=== PATIENT | male | born 1930 | race Caucasian/White ===

== ENCOUNTER 2016-08-28 09:47 | Emergency (ER) | payer MEDICARE, OTHER ==
[~2016-08-28] VITALS: Ht 160 cm; Wt 66.0 kg
[~2016-08-28 09:47] MED LIST: AMLO5TAB4 PO; ASPI81TA3 PO; ATOR20TA38 PO; FEBU40TA PO; FERR-55 PO; FINA5TAB4 PO; GABA300C16 PO; PANT40TA3 PO; PARI1CAP2 PO; VALS1TAB74 PO
[2016-08-28 09:50] VITALS: Ht 160 cm; Wt 66.0 kg
--- NOTE | 2016-08-28 11:18 | ERD ---
ER Documentation Chief Complaint Date/Time DATE: 08/28/16 TIME: 11:16 Chief Complaint BILATERAL LEG PAIN X 2 DAYS HPI 86 y/o male presents to ED for bilateral leg swelling without pain for 2 days. Stated that there was no swelling today. Reports that he has been walking a lot and exercising frequently. Has an appointment with his primary care physician , Sunday. Denies headache, loss of consciousness, dizziness, blurry vision, changes in vision, photophobia, facial pain, ear pain, throat pain, difficulty swallowing, neck pain, shoulder pain, chest pain, cough, hemoptysis, abdominal pain, back pain, loss of appetite, nausea, vomiting, hematochezia, diarrhea, constipation, urinary symptoms, bladder and bowel incontinences, extremity weakness, extremity tenderness, numbness or tingling sensation, difficulty walking, recent travel, recent exposure to illness, recent antibiotic use in the last 3 months, fever, chills. Allergy: NKA PMH: High cholesterol, cardiac, hypertension, neuropathy, gastritis. Medications: Gabapentin, atorvastatin, amlodipine/Norvasc, valsartan, Protonix, finasteride Surgery: Pacemaker placement Family history: Denies Primary Social History: Denies Denies smoking, use of alcohol, use of illegal drugs. ROS All systems reviewed and are negative except as per history of present illness. Medications Home Meds Active Scripts Aspirin (Aspirin) 81 Mg Chew, 81 MG PO DAILY, #30 Prov:MICHELLE WISE MD 05/07/14 Reported Medications Atorvastatin Calcium* (Atorvastatin Calcium*) 20 Mg Tablet, 20 MG PO QHS, #30 TAB 05/30/16 Febuxostat* (Uloric*) 40 Mg Tablet, 40 MG PO DAILY, TAB 05/30/16 Amlodipine Besylate* (Norvasc*) 5 Mg Tablet, 5 MG PO DAILY, TAB 10/08/15 Gabapentin* (Gabapentin*) 300 Mg Capsule, 300 MG PO QPM, #60 CAP 10/08/15 Valsartan-Hydrochlorothiazide (Valsartan-HCTZ) 80-12.5 Mg Tablet, 1 TAB PO DAILY , TAB 10/08/15 Ferrous Sulfate* (Ferrous Sulfate*) 325 Mg Tablet, 325 MG PO DAILY, TAB 03/07/15 Paricalcitol* (Paricalcitol*) 1 Mcg Capsule, 1 MCG PO DAILY, CAP 05/04/14 Pantoprazole* (Protonix*) 40 Mg Tablet.dr, 40 MG PO DAILY, TAB 05/04/14 Finasteride* (Finasteride*) 5 Mg Tablet, 5 MG PO DAILY 08/07/11 Allergies Allergies: Coded Allergies: No Known Allergies (Verified Allergy, Mild, 03/28/16) PMhx/Soc History of Surgery: No Anesthesia Reaction: No Hx Neurological Disorder: No Hx Respiratory Disorders: No Hx Cardiac Disorders: Yes (PACEMAKER) Hx Psychiatric Problems: No Hx Miscellaneous Medical Probl: No Hx Alcohol Use: No Hx Substance Use: No Hx Tobacco Use: No Physical Exam Vitals Vital Signs Date Time Temp Pulse Resp B/P Pulse Ox O2 Delivery O2 Flow Rate FiO2 08/28/16 09:50 98.1 81 18 160/84 98 Physical Exam CONSTITUTIONAL: Well-appearing; well-nourished; in no apparent distress. HEAD: Normocephalic; atraumatic. EYES: Conjunctiva clear, sclera non-icteric, EOM intact. PERRL Ears: Hearing intact. EACs clear, TMs non-bulging, non-inflamed, translucent & mobile, ossicles normal appearance, No obstructions, no erythema, no discharges Nose: No obstructions. No polyps. No external lesions. Mucosa non-inflamed. No external lesions, septum and turbinates normal. No rhinorrhea. No discharges. Frontal sinus is non-tender to palpation. Maxillary sinus is non-tender to palpation. MOUTH: Moist mucous membranes, no lesion, no obstructions, no vesicles, no thrush, patent airway Throat: Uvula in midline. Right tonsil is +1 with no erythema, no exudate. Left tonsil is +1 with no erythema, no exudate. Tolerating secretions well. Good gag reflex. Patent airway. Neck: Supple, without lesions, bruits, or adenopathy. No mass. Thyroid non- enlarged and non-tender to palpation. CHEST: Symmetrical chest. Respirations even and not labored. No retractions noted. CARDIOVASCULAR: Normal S1, S2. RRR. No murmurs, gallops. RESPIRATORY: Normal chest excursion with respiration; breath sounds clear and equal bilaterally; no wheezes, rhonchi, or rales. Breathing even and unlabored. Speaking in clear, full, and complete sentences w/ ease. ABDOMEN: Normal bowel sounds normal. Soft, round, non-distended, non-guarding, no tenderness, no rebound, no organomegaly, no masses, no pulsating abdominal mass. No hernia. No peritoneal signs. : No CVA tenderness. BACK: Symmetrical shoulder. Spine is midline without deformity, tenderness. No evidence of trauma or deformity. PELVIS: Stable pelvis. No evidence of trauma or deformity. MUSCULOSKELETAL: Ambulatory with steady gait without difficulty. No misalignment , asymmetry, crepitation, defects, tenderness, masses, effusions, decreased range of motion, instability, atrophy or abnormal strength or tone in the head, neck, spine, ribs, pelvis or extremities. No calf tenderness. There is no lower extremity swelling/tenderness. Negative Homans sign bilaterally. There is no obvious edema/pitting edema bilaterally on lower extremities. NEUROVASCULAR: Distal pulses are present. Pedal pulse are present, equal, and normal. Capillary refills are < 2 seconds. NEUROLOGIC: Alert and oriented x4. Speaks full and clear sentences. Cranial Nerves II-XII normal. Sensation to pain, touch, and proprioception normal. Grossly unremarkable. No neurologic deficits. Romberg test is negative. PSYCHOLOGICAL: The patients mood and manner are appropriate. No hallucinations , delusions. Not SI. Not HI. Has the capacity to decide for self SKIN: Normal for age and ethnicity; warm; dry; good turgor; no apparent lesions or exudates. No rashes, hives, discoloration. Intact. Result Diagram: 08/28/16 1125 08/28/16 1125 Results 24 hrs Laboratory Tests Test 08/28/16 11:25 Alanine Aminotransferase (ALT/SGPT) 40IU/L Albumin 4.5g/dl Albumin/Globulin Ratio 1.18 Alkaline Phosphatase 104IU/L Anion Gap 18 Aspartate Amino Transf (AST/SGOT) 34IU/L B-Type Natriuretic Peptide 469PG/ML Basophils # 0.010^3/ul Basophils % 0.2% Blood Urea Nitrogen 50mg/dl Calcium Level 9.5mg/dl Carbon Dioxide Level 25mmol/L Chloride Level 102mmol/L Creatine Kinase 398IU/L Creatine Kinase Index 1.5 Creatinine 2.02mg/dl Creatinine Kinase MB (Mass) 5.99ng/ml Direct Bilirubin 0.00mg/dl Eosinophils # 0.010^3/ul Eosinophils % 0.3% Globulin 3.80g/dl Glucose Level 77mg/dl Hematocrit 35.7% Hemoglobin 12.3g/dl Indirect Bilirubin 0.2mg/dl Lymphocytes # 0.910^3/ul Lymphocytes % 9.3% Mean Corpuscular Hemoglobin 31.6pg Mean Corpuscular Hemoglobin Concent 34.3g/dl Mean Corpuscular Volume 92.2fl Mean Platelet Volume 8.1fl Monocytes # 0.710^3/ul Monocytes % 7.7% Neutrophils # 7.710^3/ul Neutrophils % 82.5% Nucleated Red Blood Cells # 0.010^3/ul Nucleated Red Blood Cells % 0.0/100WBC Platelet Count 58215^3/UL Potassium Level 4.2mmol/L Red Blood Count 3.8710^6/ul Red Cell Distribution Width 13.5% Sodium Level 141mmol/L Total Bilirubin 0.2mg/dl Total Protein 8.3g/dl Troponin I 0.017ng/ml White Blood Count 9.310^3/ul Procedures/MDM Examination: Unremarkable examination. Disease process, medical treatment was explained to the patient and family member. They verbalized understanding and agreed with the diagnostic tests, medical treatment, and follow-up care. EKG: Radiology: Blood works unremarkable except Urinalysis: Treatment: Re-evaluation: Consultation: Differential diagnosis: Deep vein thrombosis versus lower extremity swelling versus leg pain Medical decision makin6 y/o male presents to ED for bilateral leg swelling without pain for 2 days. Stated that there was no swelling today. Reports that he has been walking a lot and exercising frequently. Has an appointment with his primary care physician 08/30/2016. Patient's complaint, presentation, my physical findings, diagnostic test results are consistent with my final diagnosis of bilateral lower extremity swelling. Medications prescribed are the following: Patient and family member are made aware of the side effects and adverse reactions of the medications prescribed. Instructed on when to seek emergent and medical attention in case allergic/anaphylactic reactions or severe side effects and or adverse reactions to medications. Patient and family member verbalized understanding. Patient instructed Instructed to follow-up with his PCP in 24-48 hours. PCP to refer patient to [facility], [employer], Edge Grinder Machine, Ornamental Ironworker, Sales Vendor, Urologist, Orthopedics, Hand Box Coverer in 24-48 hours. Instructed to Call 911 for chest pain, shortness of breath. Advised to come back here in ED as soon as possible for severity of symptoms which includes but not limited to: any new symptoms; shortness of breath/difficulty of breathing; cardiovascular changes; severe gastrointestinal symptoms; signs and symptoms of bleeding and or infection; signs of compartment syndrome/neurovascular changes; neurological changes/deficits. Patient and family member verbalized understanding. Upon discharge, patient is alert and oriented x 4, speaks full and clear sentences, denies pain, has no neurological deficits, has no neurovascular deficits, difficulty of breathing. Breathing even and unlabored. Lung sounds are clear to auscultation. Not in distress. Appears comfortable. Ambulatory with steady gait. Appears satisfied with care provided here in ED. KIN WILLIAMSON Aug 28, 2016 11:18 KIN WILLIAMSON Aug 28, 2016 11:18
--- NOTE | 2016-08-28 11:58 | RADRPT ---
PROCEDURE: US Lower extremity Venous. CLINICAL INDICATION: SOB TECHNIQUE: Multiple sonographic images of the bilateral lower extremity deep venous system was obt ained utilizing grayscale, color-flow, compressive sonography and doppler imaging with augmentation. The images were reviewed on a PACS workstation. COMPARISON: None. FINDINGS: There is normal compressibility and flow within the bilateral common femoral, superficial femoral , posterior tibial, peroneal and popliteal veins. RPTAT: AA IMPRESSION: No sonographic evidence for deep venous thrombosis in bilateral lower extremities. Physician Harper Date Time Electronically viewed and signed by Physician Harper on 08/28/2016 11:57 RA/
[2016-08-28 12:08] LABS: BASOPHILS % 0.2 % (0.0-2.0); EOSINOPHILS % 0.3 % (0.0-7.0); HEMATOCRIT 35.7 % (42.0-52.0); HEMOGLOBIN 12.3 g/dl (14.0-18.0); LYMPHOCYTES # 0.9 10^3/ul (0.8-2.9); LYMPHOCYTES % 9.3 % (15.0-51.0); MEAN CORPUSCULAR HEMOGLOBIN 31.6 pg (29.0-33.0); MEAN CORPUSCULAR HGB CONC 34.3 g/dl (32.0-37.0); MEAN CORPUSCULAR VOLUME 92.2 fl (82.0-101.0); MEAN PLATELET VOLUME 8.1 fl (7.4-10.4); MONOCYTE # 0.7 10^3/ul (0.3-0.9); MONOCYTES % 7.7 % (0.0-11.0); NEUTROPHIL # 7.7 10^3/ul (1.6-7.5); NEUTROPHILS % 82.5 % (39.0-77.0); PLATELET COUNT 236 10^3/UL (140-440); RED BLOOD COUNT 3.87 10^6/ul (4.70-6.10); RED CELL DISTRIBUTION WIDTH 13.5 % (11.5-14.5); UNCORRECTED WBC 9.3 10^3/ul (4.8-10.8); WHITE BLOOD COUNT 9.3 10^3/ul (4.8-10.8)
[2016-08-28 12:11] LABS: ALBUMIN 4.5 g/dl (3.3-4.9)
[2016-08-28 12:12] LABS: POTASSIUM 4.2 mmol/L (3.5-5.1)
[2016-08-28 12:14] LABS: ALBUMIN/GLOBULIN RATIO 1.18; BILIRUBIN,INDIRECT 0.2 mg/dl (0-1.1); BILIRUBIN,TOTAL 0.2 mg/dl (0.2-1.3); CONDITION 1; CREATININE 2.02 mg/dl (0.61-1.24); TOTAL PROTEIN 8.3 g/dl (6.1-8.1)
[2016-08-28 12:15] LABS: CALCIUM 9.5 mg/dl (8.4-10.2)
[2016-08-28 12:36] LABS: CK-MB 5.99 ng/ml (0.0-2.4); TROPONIN-I 0.017 ng/ml (0.00-0.12)
--- NOTE | 2016-08-28 12:56 | RADRPT ---
PROCEDURE: XR Chest. CLINICAL INDICATION: Cough. TECHNIQUE: Two views. Frontal and lateral. COMPARISON: 05/26/2016. FINDINGS: The lungs are clear. The heart size is normal. There is calcification in the aorta consistent with atherosclerosis. The re is a left-sided dual lead permanent pacemaker. There is no pleural effusion. There is no pneumothorax. IMPRESSION: 1. Clear lungs. 2. Atherosclerosis. 3. Permanent pacemaker. RPTAT: QQ .Damien Moon MD, MD Date Time Electronically viewed and signed by .Damien Moon MD, MD on 08/28/2016 12:56 .R/
[2016-08-28 13:33] LABS: INR 0.98
[2016-08-28 13:34] LABS: PARTIAL THROMBOPLASTIN TIME 37.4 Sec (25.0-35.0)
--- NOTE | 2016-08-28 14:19 | ERD ---
ER Documentation Chief Complaint Date/Time DATE: 08/28/16 TIME: 14:14 Chief Complaint BILATERAL LEG PAIN X 2 DAYS HPI This is a very pleasant 86-year-old male with a known history of hypertension, coronary artery disease and a pacemaker that was placed 1 year prior to arrival. The patient presents to the emergency department today as he states that over the past 48 hours he noticed some swelling and tingling of his bilateral lower extremities that progressively worsened throughout the day. He did state he did a significant amount of walking over the past 2 days and was complaining of mild pain after ambulating. He denies any shortness of breath at rest or exertion. He denies any recent trauma or prolonged immobilization. He denies any fever shaking or chills. He has no chest pain or pressure that radiates to the neck arm back or jaw. His primary care physician is Dr. Lyons. He stated there was no weakness of his upper and lower extremities. He denied headache or changes in vision. ROS All systems reviewed and are negative except as per history of present illness. Medications Home Meds Active Scripts Aspirin (Aspirin) 81 Mg Chew, 81 MG PO DAILY, #30 Prov:MICHELLE WISE MD 05/07/14 Reported Medications Atorvastatin Calcium* (Atorvastatin Calcium*) 20 Mg Tablet, 20 MG PO QHS, #30 TAB 05/30/16 Febuxostat* (Uloric*) 40 Mg Tablet, 40 MG PO DAILY, TAB 05/30/16 Amlodipine Besylate* (Norvasc*) 5 Mg Tablet, 5 MG PO DAILY, TAB 10/08/15 Gabapentin* (Gabapentin*) 300 Mg Capsule, 300 MG PO QPM, #60 CAP 10/08/15 Valsartan-Hydrochlorothiazide (Valsartan-HCTZ) 80-12.5 Mg Tablet, 1 TAB PO DAILY , TAB 10/08/15 Ferrous Sulfate* (Ferrous Sulfate*) 325 Mg Tablet, 325 MG PO DAILY, TAB 03/07/15 Paricalcitol* (Paricalcitol*) 1 Mcg Capsule, 1 MCG PO DAILY, CAP 05/04/14 Pantoprazole* (Protonix*) 40 Mg Tablet.dr, 40 MG PO DAILY, TAB 05/04/14 Finasteride* (Finasteride*) 5 Mg Tablet, 5 MG PO DAILY 08/07/11 Allergies Allergies: Coded Allergies: No Known Allergies (Verified Allergy, Mild, 03/28/16) PMhx/Soc History of Surgery: No Anesthesia Reaction: No Hx Neurological Disorder: No Hx Respiratory Disorders: No Hx Cardiac Disorders: Yes (PACEMAKER) Hx Psychiatric Problems: No Hx Miscellaneous Medical Probl: No Hx Alcohol Use: No Hx Substance Use: No Hx Tobacco Use: No Physical Exam Vitals Vital Signs Date Time Temp Pulse Resp B/P Pulse Ox O2 Delivery O2 Flow Rate FiO2 08/28/16 09:50 98.1 81 18 160/84 98 Physical Exam Constitutional:Well-developed. Well-nourished. HEENT:Normocephalic. Atraumatic.Pupils were equal round reactive to light. Moist mucous membranes.No tonsillar exudates. Neck: No nuchal rigidity. No lymphadenopathy. No posterior cervical spine tenderness or step-offs. Respiratory: Not using accessory muscles of respiration.Lungs were clear to auscultation bilaterally. No rhonchi. No rales. No wheezing. Cardiovascular: Regular rate regular rhythm.No murmurs. No rubs were appreciated.S1, S2 normal. Distal pulses are palpable 2+ bilaterally. GI: Abdomen was soft. Nontender. Non Distended. No pulsatile abdominal masses or bruits. No rebound. No guarding. Bowel sounds were present and normal. Muscle skeletal: Full range of motion of both the upper and lower extremities bilaterally.Normal muscle tone.No assymetrical calf tenderness or swelling. Skin: No petechia, no purpura. No lesions on the palms or the soles of the feet. No maculopapular rash. No pitting or nonpitting edema the bilateral lower extremities NEURO: Patient was alert, awake, orientated x3.No facial droop. Gait observed and normal with no ataxia.Speech had regular rate and rhythm. No focal neurological deficits. Result Diagram: 08/28/16 1125 08/28/16 1125 Results 24 hrs Laboratory Tests Test 08/28/16 11:25 Activated Partial Thromboplast Time 37.4Sec Alanine Aminotransferase (ALT/SGPT) 40IU/L Albumin 4.5g/dl Albumin/Globulin Ratio 1.18 Alkaline Phosphatase 104IU/L Anion Gap 18 Aspartate Amino Transf (AST/SGOT) 34IU/L B-Type Natriuretic Peptide 469PG/ML Basophils # 0.010^3/ul Basophils % 0.2% Blood Urea Nitrogen 50mg/dl Calcium Level 9.5mg/dl Carbon Dioxide Level 25mmol/L Chloride Level 102mmol/L Creatine Kinase 398IU/L Creatine Kinase Index 1.5 Creatinine 2.02mg/dl Creatinine Kinase MB (Mass) 5.99ng/ml Direct Bilirubin 0.00mg/dl Eosinophils # 0.010^3/ul Eosinophils % 0.3% Globulin 3.80g/dl Glucose Level 77mg/dl Hematocrit 35.7% Hemoglobin 12.3g/dl INR International Normalized Ratio 0.98 Indirect Bilirubin 0.2mg/dl Lymphocytes # 0.910^3/ul Lymphocytes % 9.3% Mean Corpuscular Hemoglobin 31.6pg Mean Corpuscular Hemoglobin Concent 34.3g/dl Mean Corpuscular Volume 92.2fl Mean Platelet Volume 8.1fl Monocytes # 0.710^3/ul Monocytes % 7.7% Neutrophils # 7.710^3/ul Neutrophils % 82.5% Nucleated Red Blood Cells # 0.010^3/ul Nucleated Red Blood Cells % 0.0/100WBC Platelet Count 52047^3/UL Potassium Level 4.2mmol/L Prothrombin Time 13.0Sec Prothrombin Time Ratio 1.0 Red Blood Count 3.8710^6/ul Red Cell Distribution Width 13.5% Sodium Level 141mmol/L Total Bilirubin 0.2mg/dl Total Protein 8.3g/dl Troponin I 0.017ng/ml White Blood Count 9.310^3/ul Procedures/MDM This was a very pleasant 86-year-old male that had presented to the emergency department with pain and swelling of his lower extremities that was not appreciated on physical exam. The patient had no physical exam findings of cellulitis or underlying conditions such as compartment syndrome or necrotizing fasciitis. The patient had no recent remote blunt or penetrating trauma to the bilateral lower extremities. Venous duplex ultrasound of the bilateral lower extremities indicated there was no evidence of deep vein thrombosis. There is no leukocytosis to suggest an infectious process. The patient has a known history of chronic kidney disease and his BUN was 15 creatinine was 2. His potassium was within normal limits. 12 Lead EKG tracing ordered and reviewed by myself showed: Ventricular paced rhythm at 71 bpm and no arrhythmia. OR interval not present is P waves were not appreciated on the paced rhythm QRS duration widened with a right bundle branch No ST segment elevation No ST segment depression. No changes consistent with acute ischemia. I did not feel the patient was experiencing strokelike symptoms and therefore did not obtain a CT scan of his head. Observation Note: Time: 4 hours Family Hx: No Hypertension Evaluation: Multiple exams showed improving symptoms and no evidence of a cerebrovascular accident, deep vein thrombosis or other acute life-threatening etiology at this time The patient felt comfortable being discharged home and will follow up with his primary care physician. The patient was discharged home in fair condition. They were instructed to return to the emergency department at any time if there was any worsening of their condition. The patient stated they would follow up with their PCP in the next 24-48 hours to initiate a suitable medication regimen under the care of their PCP as well as to allow their PCP to monitor any drug reactions. The patient was discharged home with prescriptions after they gave informed consent to the new medication. They were also fully informed by myself on the adverse effects and adverse drug interactions in order to provide adequate safeguards to prevent possible adverse reactions to medications. Departure Diagnosis: Primary Impression: Paresthesias Additional Impression: History of peripheral edema Condition: Fair Patient Instructions: Paraesthesias Referrals: AURE LYONS MD (PCP) VANDA ALFRED Aug 28, 2016 14:19
== END 2016-08-28 14:36 | disposition home or self-care (01) ==
LOC: FTE 09:47
DX: R20.2 Paresthesia of skin (principal); I10 Essential (primary) hypertension; I25.10 Atherosclerotic heart disease of native coronary artery without angina pectoris; Z86.79 Personal history of other diseases of the circulatory system; Z95.0 Presence of cardiac pacemaker
CPT/HCPCS: 71020; 80053; 82550; 82553; 83880; 84484; 85025; 85610; 85730; 93005; 93970

== ENCOUNTER → 2016-08-30 | Outpatient (CLI) | payer MEDICARE, OTHER ==
--- NOTE | 2016-08-30 13:46 | RADRPT ---
PROCEDURE: XR Chest. CLINICAL INDICATION: Cough. TECHNIQUE: Single frontal view. COMPARISON: 08/28/2016. FINDINGS: The lungs are clear. There is a left-sided permanent pacemaker. The heart size is normal. There is calcification in the aorta consistent with atherosclerosis. There is no pleural effusion. There is no pneumothorax. IMPRESSION: 1. Clear lungs. 2. Atherosclerosis. 3. Permanent pacemaker. 4. No change from 08/28/2016. RPTAT: QQ .Damien Moon MD, Date Time Electronically viewed and signed by .Damien Mono MD, MD on 08/30/2016 13:45 .R/
== END | disposition home or self-care (01) ==
LOC: RAD 11:26
PROVIDERS: ATTEND Internal Medicine
DX: R05 Cough (principal)
CPT/HCPCS: 71010

== ENCOUNTER 2016-09-05 09:27 | Day surgery (SDC) | payer MEDICARE, OTHER ==
--- NOTE | 2016-09-04 11:10 | PREOPHP ---
DATE OF ADMISSION: 09/05/2016 HISTORY OF PRESENT ILLNESS: This 86-year-old patient is admitted for elective cataract surgery of t he left eye. 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 The patient's systemic histo ry is positive for hypertension and hypercholesterolemia. CURRENT MEDICATIONS: Include: 1. Valsartan. 2. Amlodipine. 3. Atorvastatin. 4. Clonidine. 5. Aspirin (discontinued 1 week prior to surgery). 6. Meclizine. ALLERGIES: THERE ARE NO KNOWN ALLERGIES. PHYSICAL EXAMINATION: Visual acuity with best correction is 20/30 in the right eye and 20/400 in th e left eye. Slit lamp examination reveals an intraocular lens in appropriate position in the right eye and a dense posterior subcapsular cataract in the left eye. Applanation tonometry is 14 mmHg. Examination of the retina is within normal limits. DIAGNOSIS: Cataract, left eye. PLAN: Cataract extraction with lens implant, left eye. The risks and alternatives to the surgery h ave been discussed with the patient as well as the hope for improvement of visual acuity leading to a greater ability to perform activities of daily living. The patient understands this and agrees to proceed with surgery. Dictated By: HORACIO ANDREA/SERINA Conf#: [id number] DID#: [id number]
[~2016-09-05] VITALS: Ht 160 cm; Wt 65.0 kg
[2016-09-05] VITALS (11 sets, daily range): BP systolic 126–160; BP diastolic 69–87; PULSE 76–80; RESP 14–18; Ht 160 cm; Wt 65.0 kg
[~2016-09-05 09:27] MED LIST changes: +CIPROFLOXACIN 0.3% 2.5 ML OPH OPER SCH; +CYCLOPENTOLATE/PHENYLEPH 2 ML OPH OPER SCH; +DICLOFENAC 0.1% 2.5 ML OPH OPER SCH; +TROPICAMIDE 1% 2 ML OPH OPER SCH
[2016-09-05] MEDS ORDERED: HYALURONATE/CHONDROITIN 1ML OPH INJ ONE (11:16)
[2016-09-05] MEDS ORDERED: DEXAMETHASONE 4 MG/ML 1 ML INJ ONE (11:16)
[2016-09-05] MEDS ORDERED: CARBACHOL 0.01% 1.5 ML OPH INJ ONE (11:16)
[2016-09-05] MEDS ORDERED: LIDOCAINE 4% (MPF) 5 ML INJ ONE (11:16)
[2016-09-05] MEDS ORDERED: PROPOFOL 20 ML ONE (11:38)
[2016-09-05] MEDS ORDERED: FENTAnyl 50 MCG/ML VIAL ONE (11:38)
[2016-09-05] MEDS ORDERED: CEFAZOLIN 1 GM INJ INJ ONE (11:52)
[2016-09-05] MEDS ORDERED: METOCLOPRAMIDE 10 MG INJ IV PRN (12:00)
[2016-09-05] MEDS ORDERED: HYDROmorphONE (0.2 MG/ML) 10ML SYG IV PRN ×3 (12:00)
[2016-09-05] MEDS ORDERED: ONDANSETRON 4 MG INJ IV PRN (12:00)
--- NOTE | 2016-09-05 14:29 | OPR ---
DATE OF OPERATION: 09/05/2016 PREOPERATIVE DIAGNOSIS: Cataract, left eye. POSTOPERATIVE DIAGNOSIS: Cataract, left eye. SURGEON: Horacio Osorio MD ANESTHESIA: Local standby. ANESTHESIOLOGIST: Dr. Santos OPERATION: Cataract extraction with lens implant, left eye. PROCEDURE: The patient was brought to the operating room and placed on the table with an IV in plac e and the patient attached to an dental hygienist. Oxygen was given via face mask. After some intravenous sedation was administered, local anesthesia was given using Xylocaine 2% with epinephrine, mixed with Marcaine 0.5%. This was given in a lid block and retrobulbar injection. The patient was then prepped and draped in the usual sterile manner. A wire lid speculum was inserted between the lids of the left eye. A Superblade was used to enter th e anterior chamber at the corneoscleral limbus at the 10:30 o'clock position. A separate incision wa s made using a 3.0-mm keratome which entered the corneoscleral junction at the 12 o'clock position. Through this 3-mm opening, an irrigating cystitome was introduced into the anterior chamber. The emily mber was filled with Viscoat and an anterior capsulotomy was performed. Balanced salt solution was t hen used for hydrodissection of the lens. A phacoemulsification handpiece was then brought into the field and introduced into the anterior chamber. The lens nucleus was emulsified using a deep groove and cracking the nucleus into quadrants. Following this, each quadrant was aspirated and emulsified at the pupillary margin. After this was completed, the irrigation/aspiration handpiece was brought to the field, introduced i nto the posterior chamber, and the lens cortical material was removed. When this was completed, cal tional Viscoat was injected into the anterior and posterior chambers. The 3-mm opening had its internal lips enlarged, and then the posterior chamber intraocular lens jason suring 19.5 diopters (Bausch and Lomb Model [id number]) was then injected into the posterior chamber usi ng the lens injector system. After the leading haptic was introduced into the capsular bag and the l ens optic was present in the center of the eye, the injector was removed and the trailing haptic was grasped with non-toothed forceps and introduced into the capsular fold superiorly. A Sinskey hook w as then used to rotate the intraocular lens so that the lips were oriented in the horizontal meridia n. One 10-0 nylon suture was placed across the wound. Prior to tying, the irrigation/aspiration handpiece was reintroduced into the anterior chamber to re move the Viscoat. Miochol was instilled to constrict the pupil, and then the 10-0 nylon suture was t ied. The ends were cut short and then the knot was buried. Then, 0.5 mL of dexamethasone and 0.5 mL of Ancef were injected into the sub-Tenon space in the infe rior fornix. Ciloxan drops were then placed on the surface of the eye. The speculum was removed and a patch was applied. The patient then left the operating room in satisfactory condition. Dictated By: HORACIO ANDREA/SERINA Conf#: [id number] DID#: [id number]
== END 2016-09-05 14:05 | disposition home or self-care (01) ==
LOC: SDS 09:27
PROVIDERS: ATTEND Ophthalmology
DX: H25.042 Posterior subcapsular polar age-related cataract, left eye (principal); E11.9 Type 2 diabetes mellitus without complications
CPT/HCPCS: 66984; 82962; J0690; J1100; J3010; V2632

== ENCOUNTER 2016-10-24 11:42 | Observation (INO) | payer MEDICARE, OTHER ==
[~2016-10-24] VITALS: Ht 167.6 cm; Wt 63.0 kg
[~2016-10-24 11:42] MED LIST changes: -CIPROFLOXACIN 0.3% 2.5 ML OPH OPER SCH; -CYCLOPENTOLATE/PHENYLEPH 2 ML OPH OPER SCH; -DICLOFENAC 0.1% 2.5 ML OPH OPER SCH; -TROPICAMIDE 1% 2 ML OPH OPER SCH
[2016-10-24] MEDS ORDERED: ASPIRIN 325 MG TAB PO STA (13:40)
[2016-10-24 14:00] LABS: ADD SCAN DIFF NO
[2016-10-24 14:02] LABS: BASOPHILS % 0.5 % (0.0-2.0); EOSINOPHILS # 0.2 10^3/ul (0.0-0.5); EOSINOPHILS % 2.4 % (0.0-7.0); HEMATOCRIT 33.7 % (42.0-52.0); HEMOGLOBIN 11.8 g/dl (14.0-18.0); LYMPHOCYTES # 0.9 10^3/ul (0.8-2.9); MEAN CORPUSCULAR HEMOGLOBIN 31.7 pg (29.0-33.0); MEAN CORPUSCULAR VOLUME 90.6 fl (82.0-101.0); MEAN PLATELET VOLUME 9.2 fl (7.4-10.4); MONOCYTE # 0.5 10^3/ul (0.3-0.9); MONOCYTES % 8.6 % (0.0-11.0); NEUTROPHIL # 4.6 10^3/ul (1.6-7.5); PLATELET COUNT 220 10^3/UL (140-415); RED BLOOD COUNT 3.72 10^6/ul (4.70-6.10); RED CELL DISTRIBUTION WIDTH 12.2 % (11.5-14.5); WHITE BLOOD COUNT 6.3 10^3/ul (4.8-10.8)
[2016-10-24 14:18] LABS: INR 1.04; PROTIME 13.6 Sec (12.2-14.2); PT RATIO 1.1
[2016-10-24 14:19] LABS: ALBUMIN 4.3 g/dl (3.3-4.9); CHLORIDE 100 mmol/L (97-110); PARTIAL THROMBOPLASTIN TIME 37.4 Sec (25.0-35.0); POTASSIUM 4.4 mmol/L (3.5-5.1); SODIUM 135 mmol/L (135-144)
[2016-10-24 14:21] LABS: ANION GAP 14 (8-16); BILIRUBIN,INDIRECT 0.2 mg/dl (0-1.1); BILIRUBIN,TOTAL 0.2 mg/dl (0.2-1.3); CARBON DIOXIDE 25 mmol/L (21-31); CREATININE 2.07 mg/dl (0.61-1.24)
[2016-10-24 14:22] LABS: ALANINE AMINOTRANSFERASE 43 IU/L (13-69); ALBUMIN/GLOBULIN RATIO 1.22; ALKALINE PHOSPHATASE 113 IU/L (42-121); ASPARTATE AMINO TRANSFERASE 34 IU/L (15-46); BLOOD UREA NITROGEN 47 mg/dl (7-20); CALCIUM 9.3 mg/dl (8.4-10.2); CREATINE KINASE 446 IU/L (23-200); GLUCOSE 91 mg/dl (70-220); TOTAL PROTEIN 7.8 g/dl (6.1-8.1)
[2016-10-24 14:29] LABS: B-TYPE NATRIURETIC PEPTIDE 229 PG/ML (0-450)
[2016-10-24 14:31] LABS: CK-MB 6.82 ng/ml (0.0-2.4)
--- NOTE | 2016-10-24 14:32 | RADRPT ---
PROCEDURE: XR Chest. CLINICAL INDICATION: Chest pain. TECHNIQUE: Single frontal view. COMPARISON: 08/30/2016. FINDINGS: The lungs are clear. The heart is enlarged. There is a left-sided dual lead permanent pacemaker with leads in the right atrium and right ventricle. Calcification is present in the aorta consistent with atherosclerosis. There is no pleural effusion. There is no pneumothorax. IMPRESSION: 1. Cardiomegaly and atherosclerosis. 2. Permanent pacemaker. 3. Clear lungs. 4. No change from 08/30/2016. RPTAT: QQ .Damien Moon MD, MD Date Time Electronically viewed and signed by .Damien Moon MD, MD on 10/24/2016 14:31 .R/
[2016-10-24 14:36] LABS: TROPONIN-I < 0.012 ng/ml (0.00-0.12)
[2016-10-24] MEDS ORDERED: ASPI-664 PO (14:47)
--- NOTE | 2016-10-24 14:47 | ERA ---
ER Documentation Chief Complaint Date/Time DATE: 10/24/16 TIME: 14:43 Chief Complaint SOB AND LIGHTHEADNESS X1 DAY HPI This is a very pleasant 86-year-old Haitian-speaking male with known history of chronic kidney disease stage III, benign prostatic hypertrophy, dual-lead pacemaker placed several years prior to arrival and hypertension that presents to the emergency department complaining of chest pressure has been present for the past 24 hours. The patient stated he had associated symptoms of dizziness and lightheadedness but denied any diaphoresis nausea or vomiting. Contrary to the triage note the patient denies any shortness of breath at rest or exertion. He has had no fevers or shaking or chills. He states that the pressure is left substernal in nature and does not radiate to the neck arm back or jaw. He had multiple similar episodes over the past 24 hours as the chest pain will last for roughly 10 minutes and then will spontaneously resolved. The patient has had bilateral cataract extractions with lens implants with the most recently being to the left eye on September 05, 2016. Patient has been compliant with all his medications. ROS All systems reviewed and are negative except as per history of present illness. Medications Home Meds Active Scripts Aspirin (Aspirin) 81 Mg Chew, 81 MG PO DAILY, #30 Prov:MICHELLE WISE MD 05/07/14 Reported Medications Atorvastatin Calcium* (Atorvastatin Calcium*) 20 Mg Tablet, 20 MG PO QHS, #30 TAB 05/30/16 Febuxostat* (Uloric*) 40 Mg Tablet, 40 MG PO DAILY, TAB 05/30/16 Amlodipine Besylate* (Norvasc*) 5 Mg Tablet, 5 MG PO DAILY, TAB 10/08/15 Gabapentin* (Gabapentin*) 300 Mg Capsule, 300 MG PO QPM, #60 CAP 10/08/15 Valsartan-Hydrochlorothiazide (Valsartan-HCTZ) 80-12.5 Mg Tablet, 1 TAB PO DAILY , TAB 10/08/15 Ferrous Sulfate* (Ferrous Sulfate*) 325 Mg Tablet, 325 MG PO DAILY, TAB 03/07/15 Paricalcitol* (Paricalcitol*) 1 Mcg Capsule, 1 MCG PO DAILY, CAP 05/04/14 Pantoprazole* (Protonix*) 40 Mg Tablet.dr, 40 MG PO DAILY, TAB 05/04/14 Finasteride* (Finasteride*) 5 Mg Tablet, 5 MG PO DAILY 08/07/11 Allergies Allergies: Coded Allergies: No Known Allergies (Verified Allergy, Mild, 09/05/16) PMhx/Soc History of Surgery: Yes (RIGHT EYE CATARACT) Anesthesia Reaction: No Hx Neurological Disorder: Yes Hx Respiratory Disorders: No Hx Cardiac Disorders: Yes (pacemaker, CHF?) Hx Psychiatric Problems: No Hx Miscellaneous Medical Probl: No (neuropathic pain) Hx Alcohol Use: No Hx Substance Use: No Hx Tobacco Use: No Smoking Status: Never smoker Physical Exam Vitals Vital Signs Date Time Temp Pulse Resp B/P Pulse Ox O2 Delivery O2 Flow Rate FiO2 10/24/16 11:59 96.4 70 20 119/69 99 Physical Exam Constitutional:Well-developed. Well-nourished. HEENT:Normocephalic. Atraumatic.Pupils were irregular shaped and unresponsive to light secondary to cataract repairs bilaterally. Moist mucous membranes.No tonsillar exudates. Neck: No nuchal rigidity. No lymphadenopathy. No posterior cervical spine tenderness or step-offs. Respiratory: Not using accessory muscles of respiration.Lungs were clear to auscultation bilaterally. No rhonchi. No rales. No wheezing. Cardiovascular: Regular rate regular rhythm.No murmurs. No rubs were appreciated.S1, S2 normal. Distal pulses are palpable 2+ bilaterally. No reproducible chest wall tenderness crepitus or ecchymosis GI: Abdomen was soft. Nontender. Non Distended. No pulsatile abdominal masses or bruits. No rebound. No guarding. Bowel sounds were present and normal. Muscle skeletal: Full range of motion of both the upper and lower extremities bilaterally.Normal muscle tone.No assymetrical calf tenderness or swelling. Skin: No petechia, no purpura. No lesions on the palms or the soles of the feet. No maculopapular rash. NEURO: Patient was alert, awake, orientated x3.No facial droop. Gait observed and normal with no ataxia.Speech had regular rate and rhythm. No focal neurological deficits. Result Diagram: 10/24/16 1350 10/24/16 1350 Results 24 hrs Laboratory Tests Test 10/24/16 13:50 White Blood Count 6.310^3/ul Red Blood Count 3.7210^6/ul Hemoglobin 11.8g/dl Hematocrit 33.7% Mean Corpuscular Volume 90.6fl Mean Corpuscular Hemoglobin 31.7pg Mean Corpuscular Hemoglobin Concent 35.0g/dl Red Cell Distribution Width 12.2% Platelet Count 36358^3/UL Mean Platelet Volume 9.2fl Neutrophils % 73.0% Lymphocytes % 15.0% Monocytes % 8.6% Eosinophils % 2.4% Basophils % 0.5% Nucleated Red Blood Cells % 0.0/100WBC Neutrophils # 4.610^3/ul Lymphocytes # 0.910^3/ul Monocytes # 0.510^3/ul Eosinophils # 0.210^3/ul Basophils # 0.010^3/ul Nucleated Red Blood Cells # 0.010^3/ul Prothrombin Time 13.6Sec Prothrombin Time Ratio 1.1 INR International Normalized Ratio 1.04 Activated Partial Thromboplast Time 37.4Sec Sodium Level 135mmol/L Potassium Level 4.4mmol/L Chloride Level 100mmol/L Carbon Dioxide Level 25mmol/L Anion Gap 14 Blood Urea Nitrogen 47mg/dl Creatinine 2.07mg/dl Glucose Level 91mg/dl Calcium Level 9.3mg/dl Total Bilirubin 0.2mg/dl Direct Bilirubin 0.00mg/dl Indirect Bilirubin 0.2mg/dl Aspartate Amino Transf (AST/SGOT) 34IU/L Alanine Aminotransferase (ALT/SGPT) 43IU/L Alkaline Phosphatase 113IU/L Creatine Kinase 446IU/L Creatine Kinase Index 1.5 Creatinine Kinase MB (Mass) 6.82ng/ml Troponin I < 0.012ng/ml B-Type Natriuretic Peptide 229PG/ML Total Protein 7.8g/dl Albumin 4.3g/dl Globulin 3.50g/dl Albumin/Globulin Ratio 1.22 Current Medications Medications (Trade) Dose Ordered Sig/Gladis Route PRN Reason Start Time Stop Time Status Last Admin Dose Admin Aspirin (Aspirin) 325 mg ONCE STAT PO 10/24/16 13:40 10/24/16 13:41 DC 10/24/16 13:57 Procedures/MDM The patient presented to the emergency department with chest pain. My clinical evaluation and workup was to distinguish minor causes of chest pain from acute life threatening conditions such as myocardial infarction, pulmonary embolism, aortic dissection, esophageal rupture, cardiac tamponade. The patient was placed on a cardiac rehab nurse and continuous pulse oximetry. IV access established by nursing staff. The patient received p.o. aspirin and nitroglycerin with minimal improvement of his chest pain. 12 Lead EKG tracing ordered and reviewed by myself showed: Electronic atrial paced rhythm 62 bpm and no arrhythmia. AL interval normal. QRS duration widened at 178 ms with a right bundle branch block pattern No ST segment elevation No ST segment depression. No changes consistent with acute ischemia. The patient will be admitted to the hospitalist for observation to undergo serial 12-lead EKG tracings and cardiac set of enzymes as the patient's last cardiac workup was roughly 2 years prior to arrival from previous medical records. Departure Diagnosis: Primary Impression: Chest pain Qualified Code: R07.9 - Chest pain, unspecified type Condition: Serious VANDA ALFRED Oct 24, 2016 14:46
[2016-10-24] MEDS ORDERED: ACETAMINOPHEN 325 MG TAB PO PRN ×2 (15:00→16:00)
[2016-10-24] MEDS ORDERED: ONDANSETRON 4 MG INJ IV PRN ×2 (15:00→16:00)
[2016-10-24] MEDS ORDERED: ACETAMINOPHEN 650 MG SUPP PR PRN (16:00)
[2016-10-24] MEDS ORDERED: NITROGLYCERIN (SL) 0.4 MG TAB SL PRN (16:00)
[2016-10-24] MEDS ORDERED: BISACODYL 10 MG SUPP PR PRN (16:00)
[2016-10-24] MEDS ORDERED: HYDROCODONE/APAP (5/325) TAB PO PRN ×2 (16:00)
[2016-10-24] MEDS ORDERED: MAGNESIUM HYDROXIDE 30ML CUP PO PRN (16:00)
[2016-10-24] MEDS ORDERED: NACL 0.9% 3 ML SYG IV SCH (16:00)
[2016-10-24] MEDS ORDERED: DOCUSATE SODIUM 100 MG CAP PO PRN (16:00)
[2016-10-24] MEDS ORDERED: morphine 2 MG INJ IV PRN (16:00)
[2016-10-24 17:49] LABS: CREATINE KINASE 405 IU/L (23-200)
--- NOTE | 2016-10-24 17:59 | HP ---
DATE OF ADMISSION: 10/24/2016 CHIEF COMPLAINT: Chest pain. 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 According to the patient, he had been having chest pain for 2 days' duration, t hat had been going on intermittently. He did report chest pain was squeezing like in nature. He di d report it also was exacerbated on deep inspiration. No reports of dyspnea on exertion, although h e did have some dyspnea whenever the chest pain would occur. He also reported some generalized weak ness with it. As such, he came to [facility] for further evaluation. Upon examin ation, he did have chest x-ray that did show him to have cardiomegaly, as well as atherosclerosis, a nd a permanent pacemaker with clear lungs. Additionally, the patient also had initial troponin draw n which was essentially negative. He also was noted with renal insufficiency with BUN of 47, creati nine of 2.07. He was noted to be anemic with hemoglobin of 11.8, hematocrit of 33.7, although is al so documented that he has some underlying iron deficiency. The patient was also seen with a blood p ressure of 119/69 and remained febrile. Currently, the patient reports that his chest pain is gone. He reports that it occurs intermittently. No real exacerbating cause. No nausea or vomiting asso ciated with it. We will evaluate him for the aforementioned issues. MEDICAL AND SURGICAL HISTORY 1. CKD III-IV. 2. 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 3. Dyslipidemia. 4. Hypertension. SOCIAL HISTORY: Patient denies any cigarette smoking, alcohol consumption, or illicit drug use. FAMILY HISTORY: Noncontributory. ALLERGIES: MECLIZINE. REVIEW OF SYSTEMS: A 12-point review of systems IS obtained and is entirely negative except that me ntioned in the history of present illness. HOME MEDICATIONS: 1. Ferrous sulfate 325 mg p.o. every day. 2. Norvasc 5 mg p.o. every day. 3. Atorvastatin 20 mg p.o. at bedtime. 4. Valsartan/hydrochlorothiazide 80/12.5 one tab p.o. every day. 5. Aspirin 81 mg p.o. every day. 6. Neurontin 300 mg p.o. q.a.m. and q.p.m. 7. Protonix 40 mg p.o. daily. 8. Paricalcitol 1 p.o. every day. 9. Uloric 40 mg p.o. every day. 10. Finasteride 5 mg p.o. daily. PHYSICAL EXAMINATION: VITAL SIGNS: Temperature is 96.4, pulse 70, respiratory rate 20, blood pressure 119/69, and pulse o x is 99% on room air. GENERAL: This is an 86-year-old male, who appears stated age, with no apparent distress noted at th is time. EYES: Pupils equal, round and reactive to light, anicteric sclerae. NECK: Supple, nontender, no JVD. CARDIOVASCULAR: Irregular rate, but rate controlled. Note pacemaker in place. PULMONARY: Clear to auscultation bilaterally. No wheezing or rhonchi. ABDOMEN: Soft, nontender, nondistended. EXTREMITIES: No pitting edema in bilateral lower extremities. SKIN: Warm, dry, and intact. NEUROLOGIC: Alert and oriented x3. LABORATORY DATA: WBC 6.3, hemoglobin 11.8, hematocrit 33.7, and platelets are 220. Sodium 135, pot assium 4.4, BUN is 47, creatinine 2.07, creatinine kinase at 446, and CK-MB 6.82. IMAGING: Chest x-ray done on 10/24/2016 did show cardiomegaly and atherosclerosis, as well as perma nent pacemaker and clear lungs. IMPRESSION AND PLAN: 1. Chest pain. Rule out acute coronary syndrome. We will follow up on serial troponins. The joie ent does report he follows up with Dr. Gerald Sanchez as outpatient. We will get metal flooring installer consult ation. We will follow up on echocardiogram. We will monitor in telemetry. Continue optimization w ith his cardiovascular medications. 2. Suspect history of congestive heart failure. Follow up echocardiogram. Resume patient's cardia c medications. 3. Chronic kidney disease. The patient does state he follow up with Dr. Pola Hanks as an outpatient . We will monitor renal panel. Continue on gentle IV hydration. We will get jackaroo to follo w. 4. Iron anemia. We will resume patient on iron supplement. 5. Essential hypertension. We will continue on antihypertensives and adjust as needed. 6. Dyslipidemia. Continue on statin medication (will consider holding considering patient's rhabdo myolysis). 7. Rhabdomyolysis, possible etiology from statin medication. We will consider holding for now. I will continue him on IV hydration. 8. Benign prostatic hypertrophy. Continue the patient's Finasteride. ADMISSION PROCESS TIME: 40 minutes. Discussed plan of care with Dr. Michelle. Dictated By: ARCELIA LATIF [employer] COATING EQUIPMENT TENDER for LORNE SPAIN/SERINA Conf#: [id number] DID#: [id number]
[2016-10-24 18:00] VITALS: TEMP 98.7
[2016-10-24 18:02] LABS: CK-MB 6.68 ng/ml (0.0-2.4); TROPONIN-I < 0.012 ng/ml (0.00-0.12)
--- NOTE | 2016-10-24 18:57 | CONS ---
DATE OF ADMISSION: 10/24/2016 DATE OF CONSULTATION: 10/24/2016 TYPE OF CONSULTATION: Cardiology. REASON FOR CONSULTATION: Chest pain. CHIEF COMPLAINT: Chest pain. HISTORY OF PRESENT ILLNESS: Thank you for this referral. History obtained from the patient and rev iew of the old chart. The patient is also well known from previous admissions to the hospital and o utpatient workup. This is a pleasant 86-year-old gentleman with history of chronic kidney disease and heart block status. Permanent pacemaker, hypertension who came to emergency room with above complaint. The patient appa adrienney has had in the past chest pain in the left side and right side. Could not describe it well. Could not explain any exacerbating or relieving factors to me. The pain has improved now. He has mild right-sided chest pain at this point. The patient has been followed regularly; however, over t he past few months he has missed his appointments. The patient said he was feeling better so he dec ided not to come in. PAST MEDICAL HISTORY: History of hypertension, history of chronic kidney disease, history of heart block, status post permanent pacemaker, history of dyslipidemia. SOCIAL HISTORY: The patient does not smoke or drink. FAMILY HISTORY: No reported coronary artery disease. ALLERGIES: MECLIZINE. MEDICATIONS AT HOME: After his last visit with me he was supposed to be on Norvasc, aspirin, Lipito r 10 mg, Coreg 6.25 b.i.d., [id number], colchicine and Diovan HCT. Per review of the old chart, the patient also takes finasteride and Uloric. REVIEW OF SYSTEMS: He denied all other except for above-mentioned. PHYSICAL EXAMINATION: VITAL SIGNS: Temperature 96.4, heart rate of 70, blood pressure 119/69, respiration rate of 20, sat urating 99%. HEENT: Normocephalic, atraumatic. Pupils are equal. CARDIOVASCULAR: Regular rate and rhythm, systolic murmur. PULMONARY: With no wheezes, no rhonchi. GASTROINTESTINAL: Soft, nontender. EXTREMITIES: With no significant lower extremity edema. NEUROLOGIC: Awake, alert x3, nonfocal. PSYCHIATRIC: Calm, pleasant. CHEST: Status post pacemaker with no bleeding, no hematoma. PSYCHIATRIC: Calm, pleasant. LABORATORY: WBC of 6.3, hemoglobin 11.8, platelet of 220. Sodium 135, potassium 4.4, BUN of 47, cr eatinine 2.07, glucose of 91. CK of 446, MB fraction of 6.8. Troponin less than 0.012. EKG shows atrial paced rhythm with right bundle branch block. Chest x-ray shows clear lungs. ASSESSMENT AND PLAN 1. Chest pain syndrome, rule acute coronary syndrome. 2. Hypertension. 3. Chronic kidney disease. 4. History of dyslipidemia. 5. Mildly abnormal CK. 6. Heart block status post permanent pacemaker. RECOMMENDATIONS: I will hold off on the statin given his elevated CK level. Will check the lipid p fatimah tomorrow and rule out myocardial infarction. Lexiscan test will be obtained tomorrow. Continu e blood pressure medication. Dictated By: SUSAN HERRERA MD AV/SERINA Conf#: [id number] DID#: [id number] CC: ARCELIA LATIF CELL ASSEMBLY PINNER;*End*
[2016-10-24] MEDS: SOD CHLORIDE 0.9% 1,000 ML IV SCH (19:34)
[2016-10-24] MEDS ORDERED: GABAPENTIN 300 MG CAP PO SCH (21:00)
[2016-10-24] MEDS ORDERED: ATORVASTATIN 20 MG TAB PO SCH (21:00)
[2016-10-24] MEDS ORDERED: FAMOTIDINE 20 MG INJ IV SCH (21:00)
[2016-10-24 21:38] VITALS: PULSE 73
[2016-10-24 22:00] VITALS: BP 187/84; PULSE 61; RESP 18
[2016-10-24] MEDS: AMLODIPINE 5 MG TAB PO SCH (22:26)
[2016-10-24 22:30] LABS: CREATINE KINASE 349 IU/L (23-200)
[2016-10-24] MEDS: HEPARIN 5,000 UNIT/0.5 ML SYG SC SCH (22:32)
[2016-10-24 23:04] LABS: CK-MB 6.54 ng/ml (0.0-2.4); TROPONIN-I < 0.012 ng/ml (0.00-0.12)
[2016-10-24 23:24] VITALS: Ht 167.6 cm; Wt 63.0 kg
[2016-10-25] VITALS (11 sets, daily range): BP systolic 114–148; BP diastolic 60–80; PULSE 60–68; RESP 17–18
[2016-10-25 03:03] LABS: ADD UMIC YES; URINE BILIRUBIN (Dip) NEGATIVE (NEGATIVE); URINE BLOOD (Dip) 1+ (NEGATIVE); URINE COLOR LT. YELLOW (YELLOW); URINE GLUCOSE (Dip) NEGATIVE (NEGATIVE); URINE KETONES (Dip) NEGATIVE (NEGATIVE); URINE LEUKOCYTE ESTERASE (Dip) 1+ (NEGATIVE); URINE NITRITE (Dip) NEGATIVE (NEGATIVE); URINE TOTAL PROTEIN (Dip) TRACE (NEGATIVE); URINE UROBILINOGEN (Dip) 0.2 E.U./dL (0.1-1.0)
[2016-10-25 03:18] LABS: SQUAMOUS EPITHELIAL CELL,UR OCCASIONAL
[2016-10-25 03:19] LABS: BACTERIA,URINE MANY
[2016-10-25] MEDS: SOD CHLORIDE 0.9% 1,000 ML IV SCH ×2 (04:24→14:05)
[2016-10-25 08:33] LABS: ADD SCAN DIFF NO
[2016-10-25] MEDS ORDERED: REGADENOSON 0.4 MG/5 ML SYG ONE (08:45)
[2016-10-25 08:49] LABS: BASOPHILS % 0.9 % (0.0-2.0); EOSINOPHILS # 0.2 10^3/ul (0.0-0.5); EOSINOPHILS % 4.5 % (0.0-7.0); HEMATOCRIT 33.9 % (42.0-52.0); HEMOGLOBIN 11.5 g/dl (14.0-18.0); LYMPHOCYTES # 0.8 10^3/ul (0.8-2.9); LYMPHOCYTES % 17.5 % (15.0-51.0); MEAN CORPUSCULAR HEMOGLOBIN 30.9 pg (29.0-33.0); MEAN CORPUSCULAR HGB CONC 33.9 g/dl (32.0-37.0); MEAN CORPUSCULAR VOLUME 91.1 fl (82.0-101.0); MEAN PLATELET VOLUME 9.8 fl (7.4-10.4); MONOCYTE # 0.5 10^3/ul (0.3-0.9); MONOCYTES % 11.4 % (0.0-11.0); NEUTROPHILS % 65.3 % (39.0-77.0); PLATELET COUNT 212 10^3/UL (140-415); RED BLOOD COUNT 3.72 10^6/ul (4.70-6.10); RED CELL DISTRIBUTION WIDTH 12.4 % (11.5-14.5); WHITE BLOOD COUNT 4.6 10^3/ul (4.8-10.8)
[2016-10-25] MEDS ORDERED: AMLODIPINE 5 MG TAB PO SCH (09:00)
[2016-10-25] MEDS ORDERED: FERROUS SULFATE (EC) 325 MG TAB PO SCH (09:00)
[2016-10-25] MEDS ORDERED: FEBUXOSTAT 40 MG TABLET PO SCH (09:00)
[2016-10-25] MEDS ORDERED: PANTOPRAZOLE (EC) 40 MG TAB PO SCH (09:00)
[2016-10-25] MEDS ORDERED: ASPIRIN (EC) 81 MG TAB PO SCH (09:00)
[2016-10-25] MEDS ORDERED: FINASTERIDE 5 MG TAB PO SCH (09:00)
[2016-10-25] MEDS ORDERED: PARICALCITOL 1 MCG CAP PO SCH (09:00)
[2016-10-25] MEDS ORDERED: VALSARTAN 80 MG TAB PO SCH (09:00)
[2016-10-25] MEDS ORDERED: HYDROCHLOROTHIAZIDE 12.5 MG CAP PO SCH (09:00)
[2016-10-25 09:04] LABS: ALBUMIN 3.8 g/dl (3.3-4.9)
[2016-10-25 09:05] LABS: POTASSIUM 3.9 mmol/L (3.5-5.1)
[2016-10-25 09:07] LABS: ALBUMIN/GLOBULIN RATIO 1.18; BILIRUBIN,INDIRECT 0.1 mg/dl (0-1.1); BILIRUBIN,TOTAL 0.1 mg/dl (0.2-1.3); CREATININE 1.77 mg/dl (0.61-1.24)
[2016-10-25 09:08] LABS: CALCIUM 8.9 mg/dl (8.4-10.2); MAGNESIUM 2.2 mg/dl (1.7-2.5); PHOSPHORUS 4.8 mg/dl (2.5-4.9)
[2016-10-25 09:09] LABS: CHOL/HDL RATIO 2.5 RATIO
[2016-10-25 09:11] LABS: T3 UPTAKE 37.6 % (23.5-40.5)
[2016-10-25 09:25] LABS: THYROID STIMULATING HORMONE 2.41 MIU/L (0.465-4.680)
--- NOTE | 2016-10-25 09:48 | PN ---
DATE: 10/25/2016 CARDIOLOGY FOLLOWUP PROGRESS NOTE SUBJECTIVE: The patient with no chest pain or pressure. Has mild right-sided chest wall tenderness , otherwise has been stable. No palpitation. MEDICATIONS: Reviewed. PHYSICAL EXAMINATION: VITAL SIGNS: Temperature 98.4, heart rate of 64, blood pressure 132/76, respiratory rate of 18, sat urating 98%. HEENT: Normocephalic, atraumatic. No acute distress. Pupils are equal. CARDIOVASCULAR: Regular rate and rhythm, systolic murmur. PULMONARY: With no wheezes and rhonchi. GASTROINTESTINAL: Soft, nontender. EXTREMITIES: No significant edema. NEUROLOGIC: Awake and alert. PSYCHIATRIC: Appears to be calm, pleasant. LABORATORY: WBC of 4.6, hemoglobin 11.5, platelets of 212. Sodium 138, potassium 3.9, BUN of 40, c reatinine of 1.77, glucose of 78. CK 349. MB fraction of 6.5. Troponin less than 0.012. Choleste rol of 105, LDL of 43, HDL of 41. TSH is pending. ASSESSMENT AND PLAN: 1. Chest pain with negative cardiac enzymes, probably musculoskeletal. 2. Elevated CK. 3. History of heart block status post permanent pacemaker. 4. Hypertension. 5. Chronic kidney disease. RECOMMENDATIONS: We will keep the patient off of statins due to elevated CK. Lipid panels are actu ally well controlled. Lexiscan will be done today. Hydrochlorothiazide was discontinued due to his renal failure. We will continue with the aspirin, amlodipine. Beta maday can be added if needed for the blood pressure control. The patient will be scheduled to follow up with me as an outpatien t. Dictated By: SUSAN HERRERA MD AV/SERINA Conf#: [id number] DID#: [id number] CC: ARCELIA LATIF NP;*EndCC*
[2016-10-25] MEDS: AMLODIPINE 5 MG TAB PO SCH (10:52)
[2016-10-25] MEDS: HEPARIN 5,000 UNIT/0.5 ML SYG SC SCH (11:04)
--- NOTE | 2016-10-25 11:21 | CARRPT ---
DATE OF PROCEDURE: 10/25/2016 PROCEDURE: Lexiscan stress test. INDICATION: Chest pain. DESCRIPTION: Lexiscan was performed as per protocol. FINDINGS: 1. Baseline EKG showed atrial paced rhythm with right bundle branch block. 2. Heart rate at baseline is 60, blood pressure /84, heart rate at peak stress is 80, blood pr essure 147/75. 3. No significant ischemic ST changes seen. 4. No significant arrhythmia is seen. CONCLUSION: Completion of Lexiscan stress test as per protocol. Please see nuclear medicine result for final report. Dictated By: SUSAN HERRERA MD AV/SERINA Conf#: [id number] DID#: [id number]
--- NOTE | 2016-10-25 13:02 | RADRPT ---
PROCEDURE: Lexiscan myocardial perfusion study CLINICAL INDICATION: 86 -year-old patient complaining of chest pain. TECHNIQUE: Lexiscan 0.4 mg intravenously separate acquisition gated myocardial perfusion SPECT usi ng Tc 99m Myoview 30.3 mCi intravenously at stress and Tc-99m Myoview, 10.2 mCi intravenously at res t was performed using the rest/stress sequence. Poststress Myoview SPECT images were obtained in th e supine position. COMPARISON: No prior studies. FINDINGS: Perfusion images reveal no evidence of perfusion defects. Lexiscan post stress gated SPECT images demonstrate no wall motion abnormalities. IMPRESSION: 1. No evidence of perfusion defects. 2. No wall motion abnormalities. 3. The left ventricle ejection fraction at stress is 62%. A call report was made to Dr. Sanchez at 01:00 p.m. on October 25, 2016. RPTAT: HH .Mari Arnett MD, Date Time Electronically viewed and signed by .Mari Arnett MD, on 10/25/2016 13:02 .L/
[2016-10-25] MEDS ORDERED: ASPI-664 PO (14:29)
[2016-10-25] MEDS ORDERED: AMLO-145 PO (14:29)
--- NOTE | 2016-10-25 14:31 | PDOCDIS ---
Discharge Instructions DIAGNOSIS Discharge Diagnosis: 1. chest pain. 2. ckd. 3. hypertension CONDITION Patient Condition: Stable HOME CARE INSTRUCTIONS: Special Diet: low cholesterol, low fat FOLLOW UP/APPOINTMENTS Appointments 1. Follow up with Dr. Gerald Sanchez on 11/01/16 2. Follow up with Dr. Pola Hanks in 1-2 weeks ARCELIA LATIF Oct 25, 2016 14:31
--- NOTE | 2016-10-25 17:10 | CONS ---
Date/Time of Note Date/Time of Note DATE: 10/25/16 TIME: 17:09 Assessment/Plan Assessment/Plan Additional Assessment/Plan 86 yo male with 1) Suhail on CKD Stage III 2) Mild Rhabdo 3) Chronic HTN 4) CHronic Anemia 5) Dyslipidemia Consultation Date/Type/Reason Admit Date/Time Oct 24, 2016 at 14:52 Date of Consultation: Oct 25, 2016 Type of Consultation: Nephrology Reason for Consultation Suhail on CKD Referring Provider: ARCELIA LATIF Constitutional: No requiring O2 Eyes: no complaints ENT: no complaints Past Medical History Medical History: hypertension, renal disease Family History Significant Family History: no pertinent family hx Social History Alcohol Use: none Smoking Status: Never smoker Drug Use: none Exam/Review of Systems Vital Signs Vitals Vital Signs Date Time Temp Pulse Resp B/P Pulse Ox O2 Delivery O2 Flow Rate FiO2 10/25/16 16:18 65 10/25/16 16:10 98.3 17 144/76 96 10/25/16 00:48 Room Air Intake and Output 10/24/16 10/24/16 10/25/16 15:00 23:00 07:00 Intake Total 1020 ml Output Total 900 ml Balance 120 ml Exam Constitutional: oriented, No distress Head: atraumatic, normocephalic Eyes: EOMI, PERRL ENMT: mucosa pink and moist Neck: No jvd Respiratory: clear to auscultation, No diminished breath sounds, No labored breathing Cardiovascular: regular rate and rhythm, No edema Gastrointestinal: non-tender, soft, No distended, No rebound or guarding Extremities: No edema Neurological: nl mental status, No lethargic Skin: nl turgor, No diaphoresis, No rash or lesions Results Result Diagram: 10/25/16 0715 10/25/16 0718 Results 24 hrs Laboratory Tests Test 10/24/16 17:20 10/24/16 22:05 10/25/16 00:35 10/25/16 07:15 Creatine Kinase 405 H 349 H Creatine Kinase Index 1.6 1.9 Creatinine Kinase MB (Mass) 6.68 H 6.54 H Troponin I < 0.012 < 0.012 Urine Color LT. YELLOW Urine Clarity HAZY Urine pH 6.0 Urine Specific [place] 1.010 Urine Ketones NEGATIVE Urine Nitrite NEGATIVE Urine Bilirubin NEGATIVE Urine Urobilinogen 0.2 E.U./dL Urine Leukocyte Esterase 1+ H Urine Microscopic RBC 5-10 Urine WBC Clumps OCCASIONAL Urine Microscopic WBC 10-25 Urine Squamous Epithelial Cells OCCASIONAL Urine Bacteria MANY Urine Hemoglobin 1+ H Urine Osmolality 309 Urine Random Sodium 71 Urine Glucose NEGATIVE Urine Total Protein TRACE White Blood Count 4.6 #L Red Blood Count 3.72 L Hemoglobin 11.5 L Hematocrit 33.9 L Mean Corpuscular Volume 91.1 Mean Corpuscular Hemoglobin 30.9 Mean Corpuscular Hemoglobin Concent 33.9 Red Cell Distribution Width 12.4 Platelet Count 212 Mean Platelet Volume 9.8 Neutrophils % 65.3 Lymphocytes % 17.5 Monocytes % 11.4 H Eosinophils % 4.5 Basophils % 0.9 Nucleated Red Blood Cells % 0.0 Neutrophils # 3.0 Lymphocytes # 0.8 Monocytes # 0.5 Eosinophils # 0.2 Basophils # 0.0 Nucleated Red Blood Cells # 0.0 Hemoglobin A1c 5.7 Test 10/25/16 07:18 Sodium Level 138 Potassium Level 3.9 Chloride Level 106 Carbon Dioxide Level 24 Anion Gap 12 Blood Urea Nitrogen 40 H Creatinine 1.77 H Glucose Level 78 Calcium Level 8.9 Phosphorus Level 4.8 Magnesium Level 2.2 Total Bilirubin 0.1 L Direct Bilirubin 0.00 Indirect Bilirubin 0.1 Aspartate Amino Transf (AST/SGOT) 49 H Alanine Aminotransferase (ALT/SGPT) 38 Alkaline Phosphatase 83 Total Protein 7.0 Albumin 3.8 Globulin 3.20 Albumin/Globulin Ratio 1.18 Triglycerides Level 105 Cholesterol Level 105 LDL Cholesterol, Calculated 43 HDL Cholesterol 41 Cholesterol/HDL Ratio 2.5 Thyroid Stimulating Hormone (TSH) 2.410 Free Thyroxine Index 3.01 Thyroxine (T4) 8.0 Triiodothyronine (T3) Uptake 37.6 Medications Medications Current Medications Aspirin (Halfprin) 81 mg DAILY PO Last administered on 10/25/16 10:50; Admin Dose 81 MG; Start 10/25/16 at 09:00 Febuxostat (Uloric) 40 mg DAILY PO Last administered on 10/25/16 10:50; Admin Dose 40 MG; Start 10/25/16 at 09:00 Ferrous Sulfate (Ferrous Sulfate (Ec)) 325 mg DAILY PO Last administered on 10:49; Admin Dose 325 MG; Start 10/25/16 at 09:00 Finasteride (Proscar) 5 mg DAILY PO Last administered on 10/25/16 09:00; Admin Dose 5 MG; Start 10/25/16 at 09:00 Gabapentin (Neurontin) 300 mg QPM PO Last administered on 10/24/16 22:25; Admin Dose 300 MG; Start 10/24/16 at 21:00 Pantoprazole (Protonix Tab) 40 mg DAILY PO Last administered on 10/25/16 10:50 ; Admin Dose 40 MG; Start 10/25/16 at 09:00 Paricalcitol 1 mcg 1 mcg DAILY PO Last administered on 10/25/16 10:50; Admin Dose 1 MCG; Start 10/25/16 at 09:00 Sodium Chloride (NS) 1,000 ml @ 80 mls/hr [id number] IV Last administered on 10/25 14:05; Admin Dose 80 MLS/HR; Start 10/24/16 at 15:54 Ondansetron HCl (Zofran Inj) 4 mg Q6H PRN IV NAUSEA AND/OR VOMITING; Start at 16:00 Acetaminophen (Tylenol Tab) 650 mg Q6H PRN PO PAIN LEVEL 1-3 OR FEVER; Start at 16:00 Acetaminophen (Tylenol Supp) 650 mg Q6H PRN MS PAIN LEVEL 1-3 OR FEVER; Start 10/24/16 at 16:00 Acetaminophen/ Hydrocodone Bitart (Letcher (5/325)) 1 tab Q6H PRN PO MODERATE PAIN LEVEL 4-6; Start 10/24/16 at 16:00 Acetaminophen/ Hydrocodone Bitart (Letcher (5/325)) 2 tab Q6H PRN PO SEVERE PAIN LEVEL 7-10; Start 10/24/16 at 16:00 Morphine Sulfate (morphine) 2 mg Q4H PRN IV SEVERE PAIN LEVEL 7-10 Last administered on 10/24/16 19:34; Admin Dose 2 MG; Start 10/24/16 at 16:00 Docusate Sodium (Colace) 100 mg Q12H PRN PO CONSTIPATION; Start 10/24/16 at 16: 00 Magnesium Hydroxide (Milk Of Mag) 30 ml DAILY PRN PO CONSTIPATION; Start at 16:00 Bisacodyl (Dulcolax Supp) 10 mg DAILY PRN MS CONSTIPATION; Start 10/24/16 at 16 :00 Famotidine (Pepcid Iv) 20 mg Q24H IV Last administered on 10/24/16 22:25; Admin Dose 20 MG; Start 10/24/16 at 21:00 Heparin Sodium (Porcine) (Heparin (5000 Units/0.5 ml)) 5,000 unit Q12 SC Last administered on 10/25/16 11:04; Admin Dose 5,000 UNIT; Start 10/24/16 at 21:00 Nitroglycerin (Nitroglycerin (Sl Tab) 0.4 Mg) 1 tab Q5M PRN SL CHEST PAIN; Start 10/24/16 at 16:00 Amlodipine Besylate (Norvasc) 5 mg BID PO Last administered on 10/25/16 10:52 ; Admin Dose 5 MG; Start 10/24/16 at 22:00 Clonidine (Catapres) 0.1 mg Q8 PO Last administered on 10/25/16 14:03; Admin Dose 0.1 MG; Start 10/24/16 at 22:00 Procedures Procedures PROCEDURE: XR Chest. CLINICAL INDICATION: Chest pain. TECHNIQUE: Single frontal view. COMPARISON: 08/30/2016. FINDINGS: The lungs are clear. The heart is enlarged. There is a left-sided dual lead permanent pacemaker with leads in the right atrium and right ventricle. Calcification is present in the aorta consistent with atherosclerosis. There is no pleural effusion. There is no pneumothorax. IMPRESSION: 1. Cardiomegaly and atherosclerosis. 2. Permanent pacemaker. 3. Clear lungs. 4. No change from 08/30/2016. RPTAT: QQ .Damien Moon MD, MD Date Time Electronically viewed and signed by .Damien Moon MD, MD on 10/24/2016 14:31 LUIS DANIEL COLIN MD Oct 25, 2016 17:10
--- NOTE | 2016-11-03 02:52 | DS ---
DATE OF ADMISSION: 10/24/2016 DATE OF DISCHARGE: 10/25/2016 WELT RANDER: Dr. Zay Marrero DISCHARGE DIAGNOSES: 1. Chest pain. 2. Chronic kidney disease. 3. Iron anemia. 4. Essential hypertension. 5. Dyslipidemia. 6. Rhabdomyolysis, likely secondary from statin medication. 7. Benign prostatic hypertrophy. HOSPITAL COURSE: This is an 86-year-old male with history of dyslipidemia and hypertension and 2:1 AV block, status post pacemaker placement as well as CKD stage III to stage IV and anemia of chronic disease who came to [facility] due to reports of chest pain. According to the patient, he had been having chest pain for 2 days' duration that was intermittent. He did report his chest pain was squeezing-like in nature and also was exacerbated on deep inspiration. No reports of dyspnea on exertion. He did come to [facility] due to the aforementioned issues. On examination, he had a chest x-ray that showed cardiomegaly as well as atherosclerosis. Initial troponins were drawn and were all negative. He did have some renal insufficiency with BUN of 47 and creatinine 2.07. For this, he was seen by ham passer and customer service professional as well. He did have serial troponins drawn which were all essentially negative. He also did undergo a cardiac stress test which showed no evidence of perfusion defects and an ejection fraction at stress of 62%. He was seen by customer service professional, and we did avoid nephrotoxic medications as possible. During his course of his stay, he did improve. His was likely with baseline CKD, and he was advised to follow up with customer service professional as outpatient. We did stop his statin medication as to it causing rise in his creatinine kinase and causing to him to have rhabdomyolysis. He was advised to follow up with ham passer as outpatient as well. He was continued on iron for his iron anemia and his finasteride for his BPH. He was also continued on antihypertensives as needed. During his course of stay, he did improve. The plan of care was discussed with patient, and patient did verbalize his understanding. On the day of discharge, the patient was in stable condition. Discharge physical exam and vital signs are stable. CONDITION: Stable. DISCHARGE PLAN: 1. The patient's diet is low fat, low cholesterol. 2. The patient to follow up with Dr. Gerald Sanchez on 11/01/2016. 3. The patient to follow up with Dr. Pola Hanks in 1 to 2 weeks. DISCHARGE MEDICATIONS: 1. Amlodipine 5 mg p.o. b.i.d. 2. Aspirin 81 mg p.o. daily. 3. Uloric 40 mg p.o. daily. 4. Ferrous sulfate 325 mg p.o. daily. 5. Finasteride 5 mg p.o. daily. 6. Neurontin 300 mg p.o. q.p.m. 7. Protonix 40 mg p.o. daily. 8. Paricalcitol 1 mcg p.o. daily. DISCHARGE PROCESS TIME: 41 minutes. Discussed plan of care with Dr. Michelle. Dictated By: ARCELIA SPAIN/SERINA Conf#: [id number] DID#: [id number] MTDD
== END 2016-10-25 19:10 | disposition home or self-care (01) ==
LOC: E/R 11:42 → MS4 14:52
PROVIDERS: ADMIT Family Medicine; ATTEND Family Medicine
DX: R07.9 Chest pain, unspecified (principal); I12.9 Hypertensive chronic kidney disease with stage 1 through stage 4 chronic kidney disease, or unspecified chronic kidney disease; N18.9 Chronic kidney disease, unspecified; E78.5 Hyperlipidemia, unspecified; N40.0 Benign prostatic hyperplasia without lower urinary tract symptoms; D50.9 Iron deficiency anemia, unspecified; Z79.82 Long term (current) use of aspirin
CPT/HCPCS: 36415; 71010; 78452; 80053; 80061; 81001; 82550; 82553; 83036; 83735; 83880; 83935; 84100; 84153; 84154; 84300; 84436; 84443; 84479; 84484; 85025; 85610; 85730; 87086; 93005; 93017; 96372; 96374; 96375; 99285; A9500; A9505; G0378; J1644; J2270; J2785; J7030; 81003

== ENCOUNTER 2017-01-09 20:31 | Emergency (ER) | payer MEDICARE, OTHER ==
[~2017-01-09] VITALS: Ht 167.6 cm; Wt 68.0 kg
[~2017-01-09 20:31] MED LIST changes: +AMLO-145 PO; -AMLO5TAB4 PO; +ASPI-664 PO; -ASPI81TA3 PO; -ATOR20TA38 PO; -VALS1TAB74 PO
[2017-01-09 20:36] VITALS: Ht 167.6 cm; Wt 68.0 kg
[2017-01-10 02:09] VITALS: TEMP 98.1
[2017-01-10 02:53] LABS: ADD SCAN DIFF NO
[2017-01-10 03:00] LABS: BASOPHIL # 0.1 10^3/ul (0.0-0.1); BASOPHILS % 0.8 % (0.0-2.0); EOSINOPHILS # 0.2 10^3/ul (0.0-0.5); EOSINOPHILS % 3.8 % (0.0-7.0); HEMATOCRIT 34.7 % (42.0-52.0); HEMOGLOBIN 11.6 g/dl (14.0-18.0); LYMPHOCYTES # 1.2 10^3/ul (0.8-2.9); MEAN CORPUSCULAR HEMOGLOBIN 30.4 pg (29.0-33.0); MEAN CORPUSCULAR HGB CONC 33.4 g/dl (32.0-37.0); MEAN CORPUSCULAR VOLUME 90.8 fl (82.0-101.0); MEAN PLATELET VOLUME 9.6 fl (7.4-10.4); MONOCYTE # 0.7 10^3/ul (0.3-0.9); MONOCYTES % 12.1 % (0.0-11.0); NEUTROPHIL # 3.8 10^3/ul (1.6-7.5); NEUTROPHILS % 62.5 % (39.0-77.0); PLATELET COUNT 239 10^3/UL (140-415); RED BLOOD COUNT 3.82 10^6/ul (4.70-6.10); RED CELL DISTRIBUTION WIDTH 12.7 % (11.5-14.5); WHITE BLOOD COUNT 6.1 10^3/ul (4.8-10.8)
[2017-01-10 03:16] LABS: INR 0.96; PROTIME 12.8 Sec (12.2-14.2)
[2017-01-10 03:17] LABS: PARTIAL THROMBOPLASTIN TIME 38.4 Sec (25.0-35.0)
[2017-01-10 03:27] LABS: ALBUMIN 4.8 g/dl (3.3-4.9); ALBUMIN/GLOBULIN RATIO 1.5; BILIRUBIN,INDIRECT 0.2 mg/dl (0-1.1); BILIRUBIN,TOTAL 0.2 mg/dl (0.2-1.3); CREATININE 2.28 mg/dl (0.61-1.24); POTASSIUM 4.4 mmol/L (3.5-5.1)
[2017-01-10 03:37] LABS: TROPONIN-I 0.025 ng/ml (0.00-0.12)
--- NOTE | 2017-01-10 03:42 | RADRPT ---
PROCEDURE: ULTRASOUND LEFT LOWER EXTREMITY VENOUS CLINICAL INDICATION: 86-year-old male with left lower extremity pain and swelling. TECHNIQUE: Multiple sonographic images of the left lower extremity deep venous system was obtained utilizing grayscale, color-flow, compressive sonography and doppler imaging with augmentation. The images were reviewed on a PACS workstation. COMPARISON: Bilateral lower extremity venous ultrasound August 11, 2016. FINDINGS: There is normal compressibility and flow within the left common femoral, deep femoral, superficial f emoral, popliteal, posterior tibial and peroneal veins. IMPRESSION: No sonographic evidence for left lower extremity deep venous thrombosis. .Carlos Conroy MD, MD Date Time Electronically viewed and signed by .Carlos Conroy MD, MD on 01/10/2017 03:42 ./
--- NOTE | 2017-01-10 03:52 | RADRPT ---
PROCEDURE: CHEST - 1 VIEW CLINICAL INDICATION: 86-year-old male with chest pain. TECHNIQUE: A single frontal AP portable view of the chest was performed. The images were reviewed on a PACS workstation. COMPARISON: Chest x-ray October 24, 2016. FINDINGS: There is a left-sided dual chamber pacemaker. The cardiomediastinal silhouette is mildly enlarged b ut without significant interval change. The thoracic aortic arch is calcified. There is no evidenc e for an infiltrate. There is no evidence for congestive heart failure. There is no evidence for pn eumothorax. The osseous structures are intact. IMPRESSION: 1. Left-sided dual chamber pacemaker. 2. Cardiomegaly. 3. Calcified thoracic aortic arch. .Carlos Conroy MD, Date Time Electronically viewed and signed by .Carlos Conroy MD, on 01/10/2017 03:52 .M/
--- NOTE | 2017-01-10 04:15 | ERD ---
ER Documentation Chief Complaint Date/Time DATE: 01/10/17 TIME: 04:14 Chief Complaint left foot swelling w/ numbness x 4 days HPI This is an 86-year-old male comes in with complaints of left foot swelling and numbness to his leg for the past 4 days. Denies any fevers chills nausea vomiting. Denies any chest pain or shortness of breath. Denies any trauma. Denies any other current issues. ROS All systems reviewed and are negative except as per history of present illness. Medications Home Meds Active Scripts Amlodipine Besylate* (Amlodipine Besylate*) 5 Mg Tablet, 5 MG PO BID for 30 Days , TAB Prov:ARCELIA LATIF 10/25/16 Aspirin* (Aspirin* EC) 81 Mg Tablet.dr, 81 MG PO DAILY for 30 Days, TAB Prov:ARCELIA LATIF 10/25/16 Reported Medications Febuxostat* (Uloric*) 40 Mg Tablet, 40 MG PO DAILY, TAB 05/30/16 Gabapentin* (Gabapentin*) 300 Mg Capsule, 300 MG PO QPM, #60 CAP 10/08/15 Ferrous Sulfate* (Ferrous Sulfate*) 325 Mg Tablet, 325 MG PO DAILY, TAB 03/07/15 Paricalcitol* (Paricalcitol*) 1 Mcg Capsule, 1 MCG PO DAILY, CAP 05/04/14 Pantoprazole* (Protonix*) 40 Mg Tablet.dr, 40 MG PO DAILY, TAB 05/04/14 Finasteride* (Finasteride*) 5 Mg Tablet, 5 MG PO DAILY 08/07/11 Allergies Allergies: Coded Allergies: No Known Allergies (Verified Allergy, Mild, 09/05/16) meclizine (Verified Adverse Reaction, Unknown, PT COMPLAINS FELT MORE DIZZY TAKING THIS RX, 10/24/16) PMhx/Soc Medical and Surgical Hx: pt denies Surgical Hx History of Surgery: Yes (bilateral catarct surgery) Anesthesia Reaction: No Hx Neurological Disorder: No Hx Respiratory Disorders: No Hx Cardiac Disorders: Yes (HTN) Hx Psychiatric Problems: No Hx Miscellaneous Medical Probl: Yes (anemia, dyslipidemia) Hx Alcohol Use: No Hx Substance Use: No Hx Tobacco Use: No Smoking Status: Never smoker Physical Exam Vitals Vital Signs Date Time Temp Pulse Resp B/P Pulse Ox O2 Delivery O2 Flow Rate FiO2 01/10/17 02:09 98.1 67 18 173/90 100 Room Air 01/09/17 20:36 98.6 72 20 169/78 100 Physical Exam Const: [] Head: Atraumatic Eyes: Normal Conjunctiva ENT: Normal External Ears, Nose and Mouth. Neck: Full range of motion..~ No meningismus. Resp: Clear to auscultation bilaterally Cardio: Regular rate and rhythm, no murmurs Abd: Soft, non tender, non distended. Normal bowel sounds Skin: No petechiae or rashes Back: No midline or flank tenderness Ext: No cyanosis, or edema Neur: Awake and alert Psych: Normal Mood and Affect Result Diagram: 01/10/17 0210 01/10/17 0210 Results 24 hrs Laboratory Tests Test 01/10/17 02:10 White Blood Count 6.110^3/ul Red Blood Count 3.8210^6/ul Hemoglobin 11.6g/dl Hematocrit 34.7% Mean Corpuscular Volume 90.8fl Mean Corpuscular Hemoglobin 30.4pg Mean Corpuscular Hemoglobin Concent 33.4g/dl Red Cell Distribution Width 12.7% Platelet Count 93402^3/UL Mean Platelet Volume 9.6fl Neutrophils % 62.5% Lymphocytes % 20.0% Monocytes % 12.1% Eosinophils % 3.8% Basophils % 0.8% Nucleated Red Blood Cells % 0.0/100WBC Neutrophils # 3.810^3/ul Lymphocytes # 1.210^3/ul Monocytes # 0.710^3/ul Eosinophils # 0.210^3/ul Basophils # 0.110^3/ul Nucleated Red Blood Cells # 0.010^3/ul Prothrombin Time 12.8Sec Prothrombin Time Ratio 1.0 INR International Normalized Ratio 0.96 Activated Partial Thromboplast Time 38.4Sec Sodium Level 142mmol/L Potassium Level 4.4mmol/L Chloride Level 106mmol/L Carbon Dioxide Level 25mmol/L Anion Gap 15 Blood Urea Nitrogen 41mg/dl Creatinine 2.28mg/dl Glucose Level 97mg/dl Calcium Level 10.0mg/dl Total Bilirubin 0.2mg/dl Direct Bilirubin 0.00mg/dl Indirect Bilirubin 0.2mg/dl Aspartate Amino Transf (AST/SGOT) 34IU/L Alanine Aminotransferase (ALT/SGPT) 40IU/L Alkaline Phosphatase 77IU/L Troponin I 0.025ng/ml B-Type Natriuretic Peptide 263PG/ML Total Protein 8.0g/dl Albumin 4.8g/dl Globulin 3.20g/dl Albumin/Globulin Ratio 1.50 Procedures/MDM EKG: Rate/Rhythm: Normal Sinus Rhythm QRS, ST, T-waves: No changes consistent w/ acute ischemia Impression: No evidence of ischemia or arrhythmia Chest X-ray 1V Interpreted by me: Soft Tissue: No acute abnormalities Bones: No acute abnormalities Mediastinum/Cardiac Silhouette/Lungs: No acute abnormalities Medical decision makin-year-old male who comes in essentially for edema and numbness of the leg. Negative for DVT. No evidence of CHF. This is likely nondependent edema. At this point is clinically stable for outpatient management and does not require admission. Patient to follow-up with PCP. Departure Diagnosis: Primary Impression: Swelling Additional Impression: History of peripheral edema Condition: Stable ADRIANNA OCHOA Jan 10, 2017 04:15
[2017-01-10 04:49] VITALS: BP 165/90; PULSE 65; RESP 18
== END 2017-01-10 04:53 | disposition home or self-care (01) ==
LOC: E/R 20:31
DX: R22.42 Localized swelling, mass and lump, left lower limb (principal); I10 Essential (primary) hypertension; R07.9 Chest pain, unspecified; Z79.82 Long term (current) use of aspirin
CPT/HCPCS: 36415; 71010; 80053; 83880; 84484; 85025; 85610; 85730; 93005; 93971